=== PATIENT | female | born 1945 | race African-American/Black ===

== ENCOUNTER 2017-03-11 13:35 | Emergency (ER) | payer OTHER ==
[~2017-03-11] VITALS: Ht 162.6 cm; Wt 90.7 kg
[2017-03-11 15:13] LABS: UA SPECIFIC GRAVITY >=1.030 (1.005-1.035); microscopic required? YES; urine erythrocyte TRACE (NEGATIVE)
[2017-03-11 15:21] LABS: AMPHETAMINE QUAL UR NONE DETECTED (NEG <=1000)
[2017-03-11 15:24] LABS: BASOPHIL % 0.1 % (0-2); PLATELET COUNT 229 x10^3mcL (130-400)
[2017-03-11 15:36] LABS: RED CELL DISTRIBUTION WIDTH 16.4 % (11.5-14.5)
[2017-03-11 15:51] LABS: CALCIUM 8.8 mg/dL (8.5-10.1); CARBON DIOXIDE 27.4 mmol/L (21-32); POTASSIUM SERUM 3.1 mmol/L (3.5-5.1)
[2017-03-11 15:57] LABS: ALBUMIN 3.6 g/dL (3.4-5.0); BILIRUBIN TOTAL 1.2 mg/dL (0.20-1.00); MAGNESIUM 2.1 mg/dL (1.8-2.4); TOTAL PROTEIN, SERUM 7.3 g/dL (6.4-8.2)
[2017-03-11 17:11] VITALS: BP 155/91
== END 2017-03-11 17:36 | disposition home or self-care (01) ==
LOC: ED 13:35
PROVIDERS: Emergency Medicine
DX: I10 Essential (primary) hypertension (principal); T40.4X1A Poisoning by other synthetic narcotics, accidental (unintentional), initial encounter; I15.8 Other secondary hypertension; F32.9 Major depressive disorder, single episode, unspecified; R82.71 Bacteriuria; Y92.89 Other specified places as the place of occurrence of the external cause
CPT/HCPCS: 80307; 82962; 83880

== ENCOUNTER 2017-03-13 16:24 | Emergency (ER) | payer OTHER ==
[~2017-03-13] VITALS: Ht 162.6 cm; Wt 88.5 kg
[2017-03-13 18:52] LABS: UA SPECIFIC GRAVITY >=1.030 (1.005-1.035); microscopic required? YES; urine erythrocyte NEGATIVE (NEGATIVE)
[2017-03-14 00:51] VITALS: BP 149/84
== END 2017-03-14 00:51 ==
LOC: ED 16:24
PROVIDERS: Emergency Medicine
DX: I10 Essential (primary) hypertension (principal); M25.562 Pain in left knee; M25.561 Pain in right knee; G89.29 Other chronic pain; M19.90 Unspecified osteoarthritis, unspecified site
CPT/HCPCS: J1100; J1885